=== PATIENT | male | born 1995 | race Two or more races ===

== ENCOUNTER 2021-08-06 10:36 | Emergency (ER) | payer MEDICAID ==
[~2021-08-06] VITALS: Ht 175.3 cm; Wt 87.3 kg
[2021-08-06 11:36] VITALS: BP 151/94
[2021-08-06] MEDS ORDERED: IBUPROFEN 600 MG TABLET PO ONE (12:00)
== END 2021-08-06 12:25 | disposition home or self-care (01) ==
LOC: EMS 10:36
DX: S83.91XA Sprain of unspecified site of right knee, initial encounter (principal); S50.811A Abrasion of right forearm, initial encounter; F12.90 Cannabis use, unspecified, uncomplicated; V19.9XXA Pedal cyclist (driver) (passenger) injured in unspecified traffic accident, initial encounter; Y93.55 Activity, bike riding; Y92.89 Other specified places as the place of occurrence of the external cause; Y99.8 Other external cause status
CPT/HCPCS: 99283